=== PATIENT | female | born 1955 | race Caucasian/White ===

== ENCOUNTER → 2016-05-29 | Day surgery (SDC) | payer OTHER ==
[2016-05-29 08:36] LABS: HGB 13.1 g/dl (12.5-16.0); MCH 29.4 pg (25.0-31.0); MCHC 34.5 g/dL (32.0-36.0); MCV 85.4 fL (78.0-100.0); MPV 10.5 fL (6.0-9.5); RBC 4.45 M/uL (4.20-5.40); RDW 13.5 % (11.5-14.0); WBC 8.6 K/uL (4.0-10.5)
[2016-05-29 08:53] LABS: BILIRUBIN - TOTAL 0.6 mg/dL (0.1-1.0); CREATININE 0.9 mg/dL (0.5-1.0); GLOBULIN (CALCULATION) 2.9 g/dL (2.2-4.2); POTASSIUM 4.3 mmol/L (3.5-5.1); TOTAL PROTEIN 7.9 g/dL (6.4-8.3)
== END | disposition home or self-care (01) ==
LOC: FAS 07:49
PROVIDERS: Surgery
DX: Z12.11 Encounter for screening for malignant neoplasm of colon (principal); K57.30 Diverticulosis of large intestine without perforation or abscess without bleeding; K21.9 Gastro-esophageal reflux disease without esophagitis; K44.9 Diaphragmatic hernia without obstruction or gangrene; M19.90 Unspecified osteoarthritis, unspecified site; I12.9 Hypertensive chronic kidney disease with stage 1 through stage 4 chronic kidney disease, or unspecified chronic kidney disease; N18.3 Chronic kidney disease, stage 3 (moderate); E11.22 Type 2 diabetes mellitus with diabetic chronic kidney disease; Z88.0 Allergy status to penicillin; Z88.2 Allergy status to sulfonamides; Z88.8 Allergy status to other drugs, medicaments and biological substances; Z79.899 Other long term (current) drug therapy
CPT/HCPCS: 36415; 80053; J2704

== ENCOUNTER → 2020-03-27 | Day surgery (SDC) | payer MEDICARE ==
[~2020-03-27] MED LIST: ALLEGRA ALLERG180 MG PO; ASPIRIN81 MG PO; ATORVASTATIN CA20 MG PO; FLONASE ALLER15.8 ML; IBUPROFEN800 M1 PO; LISINOPRIL 20MG20 MG PO; MAG-OXIDE 400M400 MG PO; METFORMIN HCL500 MG PO; ONE DAILY FOR1 EAC3 PO; OS-CAL500 MG PO; OZEMPIC1 MG/0.75 SC
[2020-03-27 11:13] LABS: ALBUMIN 3.7 g/dL (3.4-5.0); BILIRUBIN - TOTAL 0.2 mg/dL (0.2-1.0); BUN/CREAT RATIO (CALC) 24.4 RATIO; CREATININE 0.78 mg/dL (0.51-0.95); GLOBULIN (CALCULATION) 3.5 g/dL; POTASSIUM 4.8 mmol/L (3.5-5.1); TOTAL PROTEIN 7.2 g/dL (6.4-8.2)
== END | disposition home or self-care (01) ==
LOC: FAS 06:50
PROVIDERS: Obstetrics & Gynecology
DX: C54.1 Malignant neoplasm of endometrium (principal); D25.9 Leiomyoma of uterus, unspecified; M19.90 Unspecified osteoarthritis, unspecified site; K57.30 Diverticulosis of large intestine without perforation or abscess without bleeding; J30.9 Allergic rhinitis, unspecified; I10 Essential (primary) hypertension; E78.00 Pure hypercholesterolemia, unspecified; E11.9 Type 2 diabetes mellitus without complications; Z79.899 Other long term (current) drug therapy; Z79.84 Long term (current) use of oral hypoglycemic drugs; Z80.0 Family history of malignant neoplasm of digestive organs; Z88.0 Allergy status to penicillin; Z88.2 Allergy status to sulfonamides; Z90.49 Acquired absence of other specified parts of digestive tract; Z79.82 Long term (current) use of aspirin
CPT/HCPCS: 36415; 80053; 88305; J2250; J2704; J3010; J7120

== ENCOUNTER → 2020-04-27 | Day surgery (SDC) | payer MEDICARE ==
[2020-04-27 09:45] LABS: HCT 37.1 % (37.0-47.0); HGB 12.3 g/dl (12.5-16.0); MCH 29.5 pg (25.0-31.0); MCHC 33.2 g/dL (32.0-36.0); MPV 11.1 fL (6.0-9.5); RBC 4.17 M/uL (4.20-5.40); RDW 13.3 % (11.5-14.0); WBC 8.2 K/uL (4.0-10.5)
[2020-04-27 09:57] LABS: BILIRUBIN - TOTAL 0.4 mg/dL (0.2-1.0); BUN/CREAT RATIO (CALC) 22.6 RATIO; CREATININE 0.84 mg/dL (0.51-0.95); GLOBULIN (CALCULATION) 3.5 g/dL; POTASSIUM 3.9 mmol/L (3.5-5.1); TOTAL PROTEIN 7.5 g/dL (6.4-8.2)
== END | disposition home or self-care (01) ==
LOC: FAS 08:48
PROVIDERS: Surgery
DX: Z15.09 Genetic susceptibility to other malignant neoplasm (principal); C55 Malignant neoplasm of uterus, part unspecified; K21.9 Gastro-esophageal reflux disease without esophagitis; K57.30 Diverticulosis of large intestine without perforation or abscess without bleeding; K44.9 Diaphragmatic hernia without obstruction or gangrene; R93.3 Abnormal findings on diagnostic imaging of other parts of digestive tract; M19.90 Unspecified osteoarthritis, unspecified site; I10 Essential (primary) hypertension; E78.00 Pure hypercholesterolemia, unspecified; E11.9 Type 2 diabetes mellitus without complications; N95.0 Postmenopausal bleeding; Z88.0 Allergy status to penicillin; Z88.2 Allergy status to sulfonamides; Z88.8 Allergy status to other drugs, medicaments and biological substances; Z79.84 Long term (current) use of oral hypoglycemic drugs; Z79.899 Other long term (current) drug therapy; Z90.49 Acquired absence of other specified parts of digestive tract; Z96.649 Presence of unspecified artificial hip joint; Z80.0 Family history of malignant neoplasm of digestive organs; Z20.822 Contact with and (suspected) exposure to COVID-19
CPT/HCPCS: 36415; 80053; J2704; J7120